=== PATIENT | male | born 1960 | race Caucasian/White ===

== ENCOUNTER 2017-06-28 10:32 | Emergency (ER) | payer OTHER ==
[2017-06-28 10:49] VITALS: RESP 18
--- NOTE | 2017-06-28 12:37 | EDPHY ---
H & P Stated Complaint: rt foot wound. pt has DM. heel ulcers with foul smell Time Seen by Provider: 06/28/17 12:33 HPI/ROS: CHIEF COMPLAINT: Diabetic with right foot ulcer HISTORY OF PRESENT ILLNESS: The patient presents to the ED with a right foot ulcer which has been present for the past month. The patient reports a history of type 2 diabetes. He has been intermittently compliant with his insulin. The patient denies any fever. The patient reportedly has been seen in some emergency department in the area but not prescribe antibiotics. The patient denies any vomiting, acute pain, neurologic symptoms or history of trauma. The patient does have a baker test in [place] who is cared for his foot in the past. The patient denies prior history of surgery to his feet. REVIEW OF SYSTEMS: A comprehensive 10 point review of systems is otherwise negative aside from elements mentioned in the history of present illness. Source: Patient Exam Limitations: No limitations - Personal History Current Tetanus/Diphtheria Vaccine: Unsure Current Tetanus Diphtheria and Acellular Pertussis (TDAP): Unsure - Medical/Surgical History Hx Asthma: No Hx Chronic Respiratory Disease: No Hx Diabetes: Yes Hx Cardiac Disease: Yes Hx Renal Disease: No Hx Cirrhosis: No Hx Alcoholism: No Hx HIV/AIDS: No Hx Splenectomy or Spleen Trauma: No Other PMH: DM,. HTN - Social History Smoking Status: Heavy smoker - Physical Exam Exam: General Appearance: Obese male, no acute distress Eyes: Pupils equal and round no pallor or injection ENT, Mouth: Mucous membranes moist Respiratory: There are no retractions, lungs are clear to auscultation Cardiovascular: Regular rate and rhythm Gastrointestinal: Abdomen is soft and nontender, no masses, bowel sounds normal Neurological: A&O, normal motor function, normal sensory exam, normal cranial nerves Skin: Ulcer noted to right heel, minimal surrounding erythema, no fluctuance Musculoskeletal: full range of motion all 4 extremities, no evidence of a septic arthritis Extremities: atraumatic Constitutional: Initial Vital Signs Temperature (C) 37.7 C 06/28/17 10:43 Heart Rate 106 H 06/28/17 10:43 Respiratory Rate 18 06/28/17 10:43 Blood Pressure 156/72 H 06/28/17 10:43 O2 Sat (%) 96 06/28/17 10:43 O2 Delivery Mode Room Air Allergies/Adverse Reactions: penicillin V Allergy (Verified 06/28/17 10:49) Home Medications: Medication Instructions Recorded ASPIRIN 06/28/17 Doxycycline Hyclate 100 mg PO BID #20 tab 06/28/17 Lantus 100 UNITS/ML (*) 06/28/17 Levothyroxine 06/28/17 Medical Decision Making ED Course/Re-evaluation: The patient presents to the emergency department with diabetic foot ulcer. The patient is afebrile in no acute distress. The patient has no evidence of a foul discharge from his foot or evidence of wet gangrene. The patient will be started on oral antibiotics and asked to follow up with our [facility] for a visit within the next week. The patient should return to the ED for markedly worsening symptoms or other concerns. The patient is advised to apply antibiotic ointment to his foot twice daily. He should keep it covered with a dry dressing which he changes twice daily. The patient has no evidence of a severe cellulitis or drainable abscess at this point time. The patient's blood sugars well controlled. Differential Diagnosis: Differential diagnosis considered includes diabetic ketoacidosis, diabetic foot ulcer, metabolic abnormality - Data Points Laboratory Results: Laboratory Results 06/28/17 13:00 06/28/17 13:00 06/28/17 06/28/17 13:00 13:00 WBC 16.55 10^3/uL H 10^3/uL (3.80-9.50) RBC 3.96 10^6/uL L 10^6/uL (4.40-6.38) Hgb 12.7 g/dL L g/dL (13.7-17.5) Hct 34.9 % L % (40.0-51.0) MCV 88.1 fL fL (81.5-99.8) MCH 32.1 pg pg (27.9-34.1) MCHC 36.4 g/dL g/dL (32.4-36.7) RDW 12.3 % % (11.5-15.2) Plt Count 252 10^3/uL 10^3/uL (150-400) MPV 9.5 fL fL (8.7-11.7) Neut % (Auto) 74.9 % H % (39.3-74.2) Lymph % (Auto) 14.7 % L % (15.0-45.0) [place] % (Auto) 7.1 % % (4.5-13.0) Eos % (Auto) 2.2 % % (0.6-7.6) Baso % (Auto) 0.4 % % (0.3-1.7) Nucleat RBC Rel Count 0.0 % % (0.0-0.2) Absolute Neuts (auto) 12.40 10^3/uL H 10^3/uL (1.70-6.50) Absolute Lymphs (auto) 2.43 10^3/uL 10^3/uL (1.00-3.00) Absolute Monos (auto) 1.17 10^3/uL H 10^3/uL (0.30-0.80) Absolute Eos (auto) 0.37 10^3/uL 10^3/uL (0.03-0.40) Absolute Basos (auto) 0.07 10^3/uL 10^3/uL (0.02-0.10) Absolute Nucleated RBC 0.00 10^3/uL 10^3/uL (0-0.01) Immature Gran % 0.7 % % (0.0-1.1) Immature Gran # 0.11 10^3/uL H 10^3/uL (0.00-0.10) Sodium 133 mEq/L L mEq/L (134-144) Potassium 5.1 mEq/L mEq/L (3.5-5.2) Chloride 98 mEq/L mEq/L (97-110) Carbon Dioxide 24 mEq/l mEq/l (22-31) Anion Gap 11 mEq/L mEq/L (8-16) BUN 21 mg/dL mg/dL (7-23) Creatinine 1.0 mg/dL mg/dL (0.7-1.3) Estimated GFR > 60 Glucose 126 mg/dL H mg/dL (70-100) Calcium 10.1 mg/dL mg/dL (8.5-10.4) Departure - Departure Disposition: Home, Routine, Self-Care Clinical Impression: Diabetic foot ulcer Condition: Good Instructions: Diabetic Foot Ulcers (ED) Additional Instructions: 1. Please take antibiotics as prescribed. 2. Return to the emergency department for any worsening symptoms, redness, pain , fever or swelling. 3. Please follow up with the central communications specialist you have been referred to within the next week for a follow-up visit. 4. Apply antibiotic ointment to your foot twice daily. Keep covered with dry gauze pad which you change twice day. Referrals: Aydee Hudson MD [Medical Doctor] - As per Instructions Prescriptions: Doxycycline Hyclate 100 mg PO BID #20 tab
[2017-06-28 13:16] LABS: PLATELET COUNT 252 10^3/uL (150-400)
[2017-06-28 13:57] VITALS: BP 128/79; PULSE 105; TEMP 99.5; O2SAT 95
== END 2017-06-28 14:07 | disposition home or self-care (01) ==
DX: E11.621 Type 2 diabetes mellitus with foot ulcer (principal); L97.519 Non-pressure chronic ulcer of other part of right foot with unspecified severity; I10 Essential (primary) hypertension; F17.200 Nicotine dependence, unspecified, uncomplicated; Z79.82 Long term (current) use of aspirin; Z79.4 Long term (current) use of insulin